=== PATIENT | female | born 1995 | race Caucasian/White ===

== ENCOUNTER 2024-01-12 16:17 | Emergency (ER) | payer SELFPAY ==
[2024-01-12 16:29] VITALS: BP 164/94; PULSE 65; RESP 16; TEMP 36.9; O2SAT 96; BMI 42.9
--- NOTE | 2024-01-12 17:15 | XRR_ITS ---
PROCEDURE INFORMATION: Exam: XR Left Shoulder Exam date and time: 01/12/2024 5:36 PM Age: 28 years old Clinical indication: Weakness; Shoulder; Left; Additional info: Shoulder pain no trauma TECHNIQUE: Imaging protocol: Radiologic exam of the left shoulder. Views: 2 or more views. COMPARISON: No relevant prior studies available. FINDINGS: Bones/joints: Normal. Soft tissues: Normal. XR/XR shoulder LT min 2V* [id number] IMPRESSION: No acute findings.
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
--- NOTE | 2024-01-12 18:01 | DCPLANNER ---
Message sent to Ortho for a follow up-
== END 2024-01-12 18:15 | disposition home or self-care (01) ==
PROVIDERS: Emergency Provider Physician Assistant
DX: M25.512 Pain in left shoulder (principal)
CPT/HCPCS: 73030; 99283

== ENCOUNTER → 2024-01-28 10:11 | Outpatient (BNVA) | payer SELFPAY | PROVIDERS: Referring Provider Physician Assistant; Visit Provider Student in an Organized Health Care Education/Training Program | DX: M25.512 Pain in left shoulder; M54.9 Dorsalgia, unspecified | CPT/HCPCS: 73030 ==

== ENCOUNTER 2024-04-24 17:44 | Emergency (ER) | payer SELFPAY ==
[2024-04-24 17:48] VITALS: BP 147/85; PULSE 112; RESP 17; TEMP 37.2; O2SAT 95; BMI 44.1
--- NOTE | 2024-04-24 18:48 | ED_ITS ---
HPI - Dental/Oral General: Chief complaint: Upper Respiratory Infection Stated complaint: rt face swollen Time Seen by Provider: 04/24/24 18:40 History of Present Illness: 28-year-old female comes in today with r ight facial swelling. Patient has some noticeable swelling of the face but not significant. Patient has very poor dentition. Patient been trying some fish amoxicillin with no relief. Patient reports no nausea vomiting or fever. Review of Systems General: Reports: 10 or more systems reviewed and unremarkable except in HPI and below PFSH ED PFSH: Social History Smoking and tobacco/nicotine status: current every day tobacco/nicotine user Alcohol intake: current Alcohol intake frequency: few times a month Substance/Drug Use: current Substance/Drug use frequency: daily Physical Exam Const: COMMON NORMALS: alert HENMT: COMMON NORMALS: normocephalic HEAD & SCALP: normocephalic FACE & SINUS: other (Mild facial swelling) TEETH & GINGIVA: Yes other (Very poor dentition) Neck/C-Spine: COMMON NORMALS: full ROM Resp: COMMON NORMALS: normal respiratory effort Cardio: COMMON NORMALS: regular rate RATE: regular rate Back/Pelvis: COMMON NORMALS: thoracic and lumbar spine normal to inspection Extremity: COMMON NORMALS: normal to inspection Neuro: SENSORIUM/ORIENTATION: Yes alert Skin: COMMON NORMALS: turgor normal GENERAL SKIN EXAM: turgor normal Course Vital Signs: Vital signs: Vital Signs Temperature 99 F 04/24/24 19:00 Pulse Rate 112 H 04/24/24 19:00 Respiratory Rate 17 04/24/24 19:00 Blood Pressure 147/85 04/24/24 19:00 Pulse Oximetry 95 04/24/24 19:00 Oxygen Delivery Me thod Room Air 04/24/24 17:48 MDM - Dental/Oral Medical Decision Making 28-year-old female comes in today with some complaints of right facial swelling. On exam patient has some mild swelling of the right face. Examination of the mouth notes very poor dentition with decay to the gumline. Patient does have some mild swelling of the gingiva in the right upper mouth. Patient reports pain and discomfort to her. Posterior pharynx is normal. Patient appears nontoxic. Patient appears in mild pain. Differential diagnosis dental abscess, dental pain, dental caries. Patient will be switched to clindamycin 300 mg 4 times a day for the next 7 days. Patient was strongly advised to follow-up with dentist. No radiology studies performed this visit Discharge Plan Discharge Patient Disposition: Home Clinical Impression: Dental abscess Condition: Stable Prescriptions: New clindamycin HCl 300 mg capsule 300 mg PO QID 7 Days Qty: 28 0RF No Action metformin 500 mg tablet 500 mg PO DAILY glimepiride 4 mg tablet 4 mg PO DAILY ferrous sulfate [FeroSul] 325 mg (65 mg iron) tablet 325 mg PO DAILY Discharge Orders: Discharge ED (Routine); Ordered 04/24/24 Ordered By: Oneal Garcia Discharge Diet: Usual diet Discharge Activity: Increase activity as tolerated Patient Instructions: Dental Abscess (ED) Activity Restrictions/Additional Instructions: Good oral care. Take antibiotics as directed. Follow-up with dentist for definitive care. Return to ER as needed for new concerns or worsening symptoms. Coding Level of Care Code ED Limousine Rental Clerk for Hiral Orozco
[2024-04-24] MEDS: clindamycin 150 mg Capsule 300 MG PO (18:56)
[2024-04-24 19:00] VITALS: BP 147/85; PULSE 112; RESP 17; TEMP 37.2; O2SAT 95
== END 2024-04-24 19:01 | disposition home or self-care (01) ==
PROVIDERS: Emergency Provider Nurse Practitioner Family
DX: K04.7 Periapical abscess without sinus (principal); Z79.84 Long term (current) use of oral hypoglycemic drugs; Z72.0 Tobacco use
CPT/HCPCS: 99283

== ENCOUNTER 2024-06-01 06:00 | Outpatient (CLI) | payer SELFPAY | END 2024-06-01 06:01 | disposition home or self-care (01) | PROVIDERS: PCP Clinical Nurse Specialist Adult Health; Visit Provider Clinical Nurse Specialist Adult Health | DX: I10 Essential (primary) hypertension (principal); E11.8 Type 2 diabetes mellitus with unspecified complications | CPT/HCPCS: 80053; 80061; 82728; 83036; 83550; 84443; 85025 ==

== ENCOUNTER 2024-08-13 14:21 | Emergency (ER) | payer SELFPAY ==
[2024-08-13 14:55] VITALS: BP 157/85; PULSE 101; RESP 16; TEMP 37.1; O2SAT 99; BMI 44.1
--- NOTE | 2024-08-13 15:09 | USR_ITS ---
PROCEDURE INFORMATION: Exam: US First Trimester, Transabdominal and US , Transvaginal Exam date and time: 08/13/2024 4:55 PM Age: 28 years old Clinical indication: complicated by abdominal or pelvic pain; Generalized abdominal pain; First trimester (<14 weeks 0 days); Gestational age or lmp: Gs measures 5w; ; Additional info: Pelvic pain, reports almost 8 wks, eval for iup, R/O ectopic. Eval viability LABS AND CLINICAL REPORTS: Gestational age (Established): 7 w 6 d Estimated due date (Established): 03/26/2025 TECHNIQUE: Imaging protocol: Real-time transabdominal obstetrical ultrasound of the maternal pelvis and a first trimester , less than 14 weeks 0 days, with image documentation. Transvaginal imaging was used for better evaluation of the fetus, adnexa, and/or cervix. COMPARISON: No relevant prior studies available. FINDINGS: GESTATION: Gestation: Tiny cystic focus within the endometrial canal may represent a gestational sac. Embryonic/ heart rate: Not detected. Extra-embryonic membranes/Placenta: Not clearly visualized. Amniotic/Chorionic fluid: Not clearly visualized. BIOMETRY: Mean sac diameter: 0.26 cm. EGA (MSD) is 5 w 0 d MATERNAL: Uterus: Unremarkable. Endometrial stripe measures 1.4 cm in thickness. Nabothian cysts are noted. Cervix: Cervical length measures 3.2 cm. Right ovary/adnexa: Right ovary measures 2.5 x 2.4 x 2.8 cm. Normal waveforms. Left ovary/adnexa: Left ovary measures 2.6 x 1.9 x 3.1 cm. Normal waveforms. Intraperitoneal space: No intraperitoneal free fluid. US/US OB <=14 wk fetus w transvag IMPRESSION: 1. Tiny cystic focus in the endometrial canal could represent a gestational sac. No pole detected, possibly too early for dates. Recommend correlation with beta HCG levels. A follow-up ultrasound could be considered in 1-2 weeks to re-evaluate. 2. No definite evidence of ectopic .
--- NOTE | 2024-08-13 16:32 | W.ED.ABDPA2 ---
HPI - Abdominal Pain General: Chief Complaint: Abdominal Pain Stated Complaint: 8weeks preg - cramping and leg pains Time Seen by Provider: 08/13/24 16:18 History of Present Illness: 28-year-old female presents emergency room at 8 weeks gestation complaining of some pelvic cramping denies dysuria urgency or frequency no vaginal discharge. No vomiting or diarrhea. No vaginal bleeding. She has not yet established for her care. Associated Symptoms: Denies chills, dysuria and fever(s) Related Data Home Medications Medication Instructions Recorded Confirmed ferrous sulfate 325 mg (65 mg 325 mg PO DAILY 01/28/24 07/25/24 iron) tablet (FeroSul) Previous Rx's Medication Instructions Recorded losartan 25 mg tablet 25 mg PO DAILY #30 tabs 06/01/24 glipizide 2.5 mg tablet 2.5 mg PO DAILY #30 tabs 06/02/24 metformin 500 mg tablet,extended 500 mg PO BID #60 tabs 06/02/24 release 24 hr naproxen 250 mg tablet 250 mg PO BID PRN pain #60 tabs 06/20/24 nitrofurantoin 100 mg PO BID 7 days #14 caps 08/13/24 monohydrate/macrocrystals 100 mg capsule (Macrobid) Allergies Allergy/AdvReac Type Severity Reaction Status Date / Time DETERGENT Allergy ALGY-Rash Uncoded 07/25/24 08:00 GREEN DYE Allergy ALGY-Rash Uncoded 07/25/24 08:00 Review of Systems Const: Denies: fever(s) or chills Card: Denies: chest pain Resp: Denies: dyspnea GI: Denies: abdominal pain : Denies: dysuria, urinary frequency or urinary urgency Musc: Denies: neck pain or back pain Skin/Breast: Denies: rash PFSH ED PFSH: Medical History Iron deficiency anemia Hyperlipidemia H/O psychiatric care Major depression Generalized anxiety disorder Heart murmur as a child Gastritis Morbid obesity due to excess calories ABIODUN (obstructive sleep apnea) never had a machine Nicotine dependence with current use smokes 1/2 PPD X 6 years Essential hypertension Type 2 diabetes mellitus with complication Surgical History No pertinent past surgical history Family History Other CAD (coronary artery disease) Diabetes Diabetes mellitus, type 2 Hyperlipidemia Hypertension Psychiatric illness Schizophrenia Stroke Denies family history of Hypothyroidism Breast cancer Cancer Social History Smoking and tobacco/nicotine status: current every day tobacco/nicotine user cigarettes [ Other cigarette details: 6 pack year history] Alcohol intake: current Alcohol intake frequency: few times a month Substance/Drug Use: current Substance/Drug use frequency: daily Other substance/drug use details: for anxiety Lives independently: Yes Household members: significant other Number of children: 0 Current occupational status: employed Pets and animals: Yes Pets & animals: cat(s) and dog(s) Do you think of yourself as: Bisexual Physical Exam Const: COMMON NORMALS: no acute distress GENERAL APPEARANCE: cooperative and comfortable ORIENTATION/CONSCIOUSNESS: Yes awake, Yes oriented to person, Yes oriented to place and Yes oriented to time HENMT: COMMON NORMALS: normocephalic, atraumatic and hearing grossly normal bilaterally HEAD & SCALP: normocephalic and atraumatic Resp: COMMON NORMALS: normal respiratory effort, No retractions, No use of accessory muscles and clear to auscultation bilaterally AUSCULTATION: clear to auscultation bilaterally Cardio: COMMON NORMALS: regular rate, regular rhythm and No murmurs present (Cardio) RATE: regular rate RHYTHM: regular rhythm GI: COMMON NORMALS: Soft to palpation and No hepatosplenomegaly present AUSCULTATION: Yes normoactive bowel sounds PALPATION: Yes Soft to palpation, No Tenderness to palpation present (GI), No Guarding due to palpation present (GI) and Yes No hepatosplenomegaly present Extremity: COMMON NORMALS: normal to inspection, capillary refill normal, no clubbing, cyanosis or edema, no calf tenderness and no pedal edema Neuro: SENSORIUM/ORIENTATION: Yes oriented to person, Yes oriented to place and Yes oriented to time Skin: COMMON NORMALS: no rashes or lesions noted GENERAL SKIN EXAM: no rashes or lesions noted Course Vital Signs: Vital signs: Vital Signs Temperature 98.7 F 08/13/24 14:55 Pulse Rate 101 H 08/13/24 14:55 Respiratory Rate 16 08/13/24 14:55 Blood Pressure 157/85 08/13/24 14:55 Pulse Oximetry 99 08/13/24 14:55 Oxygen Delivery Me thod Room Air 08/13/24 14:55 MDM - Abdominal Pain Medical Decision Making Beta-hCG low for 8 weeks gestation. Ultrasound shows intrauterine but is 5 weeks or last. Concerning for missed or threatened AB. She is not having any bleeding at this point. She has an incidental cystitis as well. That could also be the source of the cramping. Reviewed findings with the patient. She should contact Dr. Bryan's office first thing on Thursday to have a repeat beta-hCG drawn on Thursday. She was given a gram of Rocephin here and is to start the Macrobid tomorrow. Medical Records I reviewed the patient's medical records. Lab Data I reviewed the patient's lab results. Labs/Radiology: Laboratory Results HCG, Qual Positive (Negative) H 08/13/24 16:37 Ser , Semi-Qnt 692.40 mIU/mL 08/13/24 17:29 Urine Color Yellow (Yellow) 08/13/24 16:37 Urine Appearance Cloudy (CLEAR) A 08/13/24 16:37 Urine pH 5.5 (5-7) 08/13/24 16:37 Ur Specific [place] 1.022 (1.005-1.030) 08/13/24 16:37 Urine Protein Negative (Negative) 08/13/24 16:37 Urine Glucose (UA) Negative (Normal) 08/13/24 16:37 Urine Ketones Negative (Negative) 08/13/24 16:37 Urine Blood Negative (Negative) 08/13/24 16:37 Urine Nitrate Negative (Negative) 08/13/24 16:37 Urine Bilirubin Negative (Negative) 08/13/24 16:37 Urine Urobilinogen 0.2 mg/dL (Negative) 08/13/24 16:37 Ur Leukocyte Esterase 1+ (Negative) A 08/13/24 16:37 Urine RBC 0-2 /hpf (0-2) 08/13/24 16:37 Urine WBC 21-50 /hpf (0-5) H 08/13/24 16:37 Ur Squamous Epith Cells 11-20 /hpf (0-5) 08/13/24 16:37 Amorphous Sediment Not Reportable 08/13/24 16:37 Urine Bacteria 3+ /hpf (NONE) H 08/13/24 16:37 Hyaline Casts 0-4 /lpf H 08/13/24 16:37 All radiology interpretation(s) finalized by discharge Discharge Plan Discharge Patient Disposition: Home Clinical Impression: Miscarriage, threatened, early , Cystitis Condition: Stable Prescriptions: New nitrofurantoin monohyd/m-cryst [Macrobid] 100 mg capsule 100 mg PO BID 7 Days Qty: 14 0RF Rx Instructions: must administer with a meal/food No Action ferrous sulfate [FeroSul] 325 mg (65 mg iron) tablet 325 mg PO DAILY losartan 25 mg tablet 25 mg PO DAILY Qty: 30 0RF naproxen 250 mg tablet 250 mg PO BID PRN (Reason: pain) Qty: 60 0RF metformin 500 mg tablet extended release 24 hr 500 mg PO BID Qty: 60 0RF glipizide 2.5 mg tablet 2.5 mg PO DAILY Qty: 30 0RF Discharge Orders: Discharge ED (Routine); Ordered 08/13/24 Ordered By: Mendez Dove Referrals: Jamari Delacruz NP [Primary Care Provider] - Discharge Diet: Usual diet Discharge Activity: Resume usual activity Patient Instructions: Threatened Miscarriage (ED), Opioid Safety, Pain Management Activity Restrictions/Additional Instructions: Thank you for choosing [facility] for your healthcare needs today. It is very important that you follow up as instructed or that you return to the Emergency Department should you have concerns or if your condition changes or worsens in any way. You were seen in the emergency room with complaint of pelvic cramping. You were found to have a bladder infection you are given a dose of antibiotics in the emergency room recommend he start oral antibiotics tomorrow 1 pill twice a day for 7 days. Additionally we did do an ultrasound the is in utero but is lower than expected to be for 8 weeks. It is possible that you are earlier than the thought for in the course of the or it is possible that you may be having a miscarriage. You should have the beta-hCG rechecked in 3 days. Your primary care doctor or your OB can arrange for this. Coding Level of Care Code ED Concrete Crusher Loader Operator for Hiral Orozco
[2024-08-13 16:44] LABS: HCG Qualitative Urine. Positive (Negative)
[2024-08-13 16:45] LABS: Bilirubin Urine Negative (Negative); Blood Urine Negative (Negative); Glucose Urine UA Negative (Normal); Ketones Urine Negative (Negative); Leukocyte Esterase Urine 1+ (Negative); Nitrate Urine Negative (Negative); Protein Urine Negative (Negative); Specific Gravity, Urine 1.022 (1.005-1.030); Urine Appearance Cloudy (CLEAR); Urine Color Yellow (Yellow); Urobilinogen Urine 0.2 mg/dL (Negative); pH Urine 5.5 (5-7)
[2024-08-13 16:47] LABS: Add Urine Microscopic? YES; Bacteria Urine 3+ /hpf; Hyaline Casts Urine 0-4 /lpf; RBC Urine 0-2 /hpf (0-2); WBC Urine 21-50 /hpf (0-5)
[2024-08-13 16:49] LABS: Add Urine Culture? No
[2024-08-13] MEDS: cefTRIAXone 1,000 mg SDV 1000 MG IVP (18:10)
[2024-08-13 18:43] VITALS: BP 163/86; PULSE 97; O2SAT 98
== END 2024-08-13 18:43 | disposition home or self-care (01) ==
PROVIDERS: Emergency Medicine; Emergency Provider Family Medicine; PCP Clinical Nurse Specialist Adult Health
DX: O20.0 Threatened abortion (principal); Z3A.08 8 weeks gestation of pregnancy; O23.11 Infections of bladder in pregnancy, first trimester; O24.111 Pre-existing type 2 diabetes mellitus, in pregnancy, first trimester; O16.1 Unspecified maternal hypertension, first trimester; O99.331 Smoking (tobacco) complicating pregnancy, first trimester; F17.210 Nicotine dependence, cigarettes, uncomplicated
CPT/HCPCS: 36415; 76801; 76817; 81001; 81025; 84702; 96374; 99284; J0696

== ENCOUNTER 2024-08-16 08:39 | Emergency (ER) | payer SELFPAY ==
[2024-08-16 08:43] VITALS: BP 190/94; PULSE 99; RESP 16; TEMP 36.8; O2SAT 99
[2024-08-16 08:52] VITALS: BP 190/94; PULSE 126; RESP 16; O2SAT 99
[2024-08-16 09:06] LABS: Basophils # 0.1 10^3/uL (0.0-0.1); Basophils % 0.6 %; Eosinophils # 0.1 10^3/uL (0.0-0.8); Eosinophils % 1.2 %; Hematocrit 38.4 % (36-47); Lymphocytes # 2.7 10^3/uL (0.8-4.8); Lymphocytes % 29.7 %; Mean Corpuscular HGB Conc 31.3 g/dL (30-55); Mean Corpuscular Hemoglobin 25.1 pg (27-33); Mean Corpuscular Volume 80.2 fl (85-98); Monocytes # 0.6 10^3/uL (0.2-0.9); Monocytes % 6.6 %; Neutrophils % 61.7 %; Nucleated Red Blood Cells % 0 %; Platelet Count 299 10^3/cmm (157-399); Red Blood Count 4.79 10^6/uL (3.85-5.65); Red Cell Distribution Width 13.8 % (12.1-15.1); White Blood Count 9.24 10^3/uL (3.29-11.43)
[2024-08-16 09:07] VITALS: BP 133/68; PULSE 75; RESP 16; O2SAT 99
--- NOTE | 2024-08-16 09:23 | W.ED.RECABL ---
HPI - Recheck/Abnormal Lab/Rx General: Chief Complaint: Recheck/Abnormal Lab/Rx Stated Complaint: poss miscarriage Time Seen by Provider: 08/16/24 08:43 History of Present Illness: 28-year-old female was seen 3 days ago she is estimated she was 8 weeks gestation beta-hCG was 692 with intrauterine products of conception but no pole noted. Was too early for dating. They recommended follow-up beta-hCG's and ultrasounds. She returns today to the ER for repeat beta-hCG she has not had any cramping no vaginal discharge or bleeding. Cystic structure noted on the ultrasound was in the endometrial canal. Related Data Previous Rx's Medication Instructions Recorded losartan 25 mg tablet 25 mg PO DAILY #30 tabs 06/01/24 metformin 500 mg tablet,extended 500 mg PO BID #60 tabs 06/02/24 release 24 hr nitrofurantoin 100 mg PO BID 7 days #14 caps 08/13/24 monohydrate/macrocrystals 100 mg capsule (Macrobid) Allergies Allergy/AdvReac Type Severity Reaction Status Date / Time DETERGENT Allergy ALGY-Rash Uncoded 07/25/24 08:00 GREEN DYE Allergy ALGY-Rash Uncoded 07/25/24 08:00 Review of Systems Const: Denies: fever(s) or chills : Denies: dysuria, urinary frequency, urinary urgency or vaginal bleeding PFSH ED PFSH: Medical History Iron deficiency anemia Hyperlipidemia H/O psychiatric care Major depression Generalized anxiety disorder Heart murmur as a child Gastritis Morbid obesity due to excess calories ABIODUN (obstructive sleep apnea) never had a machine Nicotine dependence with current use smokes 1/2 PPD X 6 years Essential hypertension Type 2 diabetes mellitus with complication Surgical History No pertinent past surgical history Family History Other CAD (coronary artery disease) Diabetes Diabetes mellitus, type 2 Hyperlipidemia Hypertension Psychiatric illness Schizophrenia Stroke Denies family history of Hypothyroidism Breast cancer Cancer Social History Smoking and tobacco/nicotine status: current every day tobacco/nicotine user cigarettes [ Other cigarette details: 6 pack year history] Alcohol intake: current Alcohol intake frequency: few times a month Substance/Drug Use: current Substance/Drug use frequency: daily Other substance/drug use details: for anxiety Lives independently: Yes Household members: significant other Number of children: 0 Current occupational status: employed Pets and animals: Yes Pets & animals: cat(s) and dog(s) Do you think of yourself as: Bisexual Physical Exam Const: COMMON NORMALS: no acute distress GENERAL APPEARANCE: cooperative and comfortable ORIENTATION/CONSCIOUSNESS: Yes awake, Yes oriented to person, Yes oriented to place and Yes oriented to time HENMT: COMMON NORMALS: normocephalic, atraumatic and hearing grossly normal bilaterally HEAD & SCALP: normocephalic and atraumatic Resp: COMMON NORMALS: normal respiratory effort, No retractions, No use of accessory muscles and clear to auscultation bilaterally AUSCULTATION: clear to auscultation bilaterally Cardio: COMMON NORMALS: regular rate, regular rhythm and No murmurs present (Cardio) RATE: regular rate RHYTHM: regular rhythm Extremity: COMMON NORMALS: normal to inspection, capillary refill normal, no clubbing, cyanosis or edema, no calf tenderness and no pedal edema Neuro: SENSORIUM/ORIENTATION: Yes oriented to person, Yes oriented to place and Yes oriented to time Skin: COMMON NORMALS: no rashes or lesions noted GENERAL SKIN EXAM: no rashes or lesions noted Course Vital Signs: Vital signs: Vital Signs Temperature 98.3 F 08/16/24 08:43 Pulse Rate 76 08/16/24 09:54 Respiratory Rate 16 08/16/24 09:54 Blood Pressure 131/91 08/16/24 09:54 Pulse Oximetry 98 08/16/24 09:54 Oxygen Delivery Me thod Room Air 08/16/24 09:07 MDM - Recheck/Abnormal Lab/Rx Medical Decision Making Discharge patient home beta-hCG had slight increase from 692-769. Needed repeat beta-hCG in 3 days [facility] and repeat the beta-hCG and follow-up at that time. She has an appointment next week to see one of the providers there which she should keep that as well return if she has concerns pain or uncontrolled vaginal bleeding. Lab Data 08/16/24 08:59 08/16/24 08:59 Laboratory Results WBC 9.24 10^3/uL (3.29-11.43) 08/16/24 08:59 RBC 4.79 10^6/uL (3.85-5.65) 08/16/24 08:59 Hgb 12.00 g/dL (11.27-16.99) 08/16/24 08:59 Hct 38.4 % (36-47) 08/16/24 08:59 MCV 80.2 fl (85-98) L 08/16/24 08:59 MCH 25.1 pg (27-33) L 08/16/24 08:59 MCHC 31.3 g/dL (30-55) 08/16/24 08:59 RDW 13.8 % (12.1-15.1) 08/16/24 08:59 Plt Count 299 10^3/cmm (157-399) 08/16/24 08:59 MPV 10.0 fL (7.4-10.4) 08/16/24 08:59 Neut % (Auto) 61.7 % 08/16/24 08:59 Lymph % (Auto) 29.7 % 08/16/24 08:59 [place] % (Auto) 6.6 % 08/16/24 08:59 Eos % (Auto) 1.2 % 08/16/24 08:59 Baso % (Auto) 0.6 % 08/16/24 08:59 Neut # (Auto) 5.70 10^3/uL (1.8-7.7) 08/16/24 08:59 Lymph # (Auto) 2.7 10^3/uL (0.8-4.8) 08/16/24 08:59 [place] # (Auto) 0.6 10^3/uL (0.2-0.9) 08/16/24 08:59 Eos # (Auto) 0.1 10^3/uL (0.0-0.8) 08/16/24 08:59 Baso # (Auto) 0.1 10^3/uL (0.0-0.1) 08/16/24 08:59 Nucleated RBC % (auto) 0 % 08/16/24 08:59 Nucleated RBCs # 0.0 /100WBC 08/16/24 08:59 Sodium 135 mmol/L (136-145) L 08/16/24 08:59 Potassium 4.4 mmol/L (3.5-5.1) 08/16/24 08:59 Chloride 102 mmol/L (98-107) 08/16/24 08:59 Carbon Dioxide 21 mmol/L (22-29) L 08/16/24 08:59 Anion Gap 16.4 (5-19) 08/16/24 08:59 BUN 10 mg/dL (6-20) 08/16/24 08:59 Creatinine 0.4 mg/dL (0.5-0.9) L 08/16/24 08:59 GFR Calculation 191.5 mL/min (90-130) H 08/16/24 08:59 Glucose 240 mg/dL (65-115) H 08/16/24 08:59 Calculated Osmolality 287 mOsm/kg (285-295) 08/16/24 08:59 Calcium 8.5 mg/dL (8.5-10.5) 08/16/24 08:59 Total Bilirubin 0.2 mg/dL (0.15-1.2) 08/16/24 08:59 AST 12 U/L (0-32) 08/16/24 08:59 ALT 15 U/L (0-33) 08/16/24 08:59 Alkaline Phosphatase 101 U/L (35-105) 08/16/24 08:59 Total Protein 6.8 g/dL (6.6-8.7) 08/16/24 08:59 Albumin 4.2 g/dL (3.5-5.2) 08/16/24 08:59 Globulin 2.6 g/dL (1.3-4.6) 08/16/24 08:59 Ser , Semi-Qnt 769.80 mIU/mL 08/16/24 08:59 Rho(D) Type Rh positive 08/16/24 08:59 No radiology studies performed this visit Discharge Plan Discharge Patient Disposition: Home Clinical Impression: Miscarriage, threatened, early Condition: Stable Prescriptions: No Action losartan 25 mg tablet 25 mg PO DAILY Qty: 30 0RF metformin 500 mg tablet extended release 24 hr 500 mg PO BID Qty: 60 0RF nitrofurantoin monohyd/m-cryst [Macrobid] 100 mg capsule 100 mg PO BID 7 Days Qty: 14 0RF Rx Instructions: must administer with a meal/food Discharge Orders: Discharge ED (Routine); Ordered 08/16/24 Ordered By: Mendez Dove Referrals: Jamari Delacruz, FLATWORK PRESSER [Primary Care Provider] - Patient Instructions: Opioid Safety, Pain Management Activity Restrictions/Additional Instructions: Thank you for choosing [facility] for your healthcare needs today. It is very important that you follow up as instructed or that you return to the Emergency Department should you have concerns or if your condition changes or worsens in any way. You are seen today for follow-up for possible miscarriage. Your beta-hCG did go up very slightly however it was less than we would expected for early in the . We have made arrangements for you to have a another beta-hCG drawn in 3 days as an outpatient. The [facility] clinic will follow-up with the results regarding that test. You should keep your appointment next week at the [facility] clinic. Return to the ER if you have significant worsening of symptoms or developing severe pain or bleeding. Coding Level of Care Code ED Podiatrist Orthopedic for Hiral Orozco
[2024-08-16 09:40] LABS: Alanine Aminotransferase 15 U/L (0-33); Albumin Level 4.2 g/dL (3.5-5.2); Alkaline Phosphatase 101 U/L (35-105); Anion Gap 16.4 (5-19); Aspartate Amino Transferase 12 U/L (0-32); Blood Urea Nitrogen 10 mg/dL (6-20); Calcium 8.5 mg/dL (8.5-10.5); Carbon Dioxide 21 mmol/L (22-29); Chloride 102 mmol/L (98-107); Creatinine Clr Calc Pharmacy 237.2448; Globulin 2.6 g/dL (1.3-4.6); Glomerular Filtration Rate 191.5 mL/min (90-130); Glucose 240 mg/dL (65-115); Osmolality Calculated 287 mOsm/kg (285-295); Potassium 4.4 mmol/L (3.5-5.1); Sodium 135 mmol/L (136-145); Total Bilirubin 0.2 mg/dL (0.15-1.2); Total Protein 6.8 g/dL (6.6-8.7)
--- NOTE | 2024-08-16 09:52 | PC.NURSE ---
PT has been [facility] an appointment [facility] ThursdayAugust 19 @ 0900.
[2024-08-16 09:54] VITALS: BP 131/91; PULSE 76; RESP 16; O2SAT 98
== END 2024-08-16 09:56 | disposition home or self-care (01) ==
PROVIDERS: Emergency Provider Family Medicine; PCP Clinical Nurse Specialist Adult Health
DX: O20.0 Threatened abortion (principal); Z3A.08 8 weeks gestation of pregnancy; O24.111 Pre-existing type 2 diabetes mellitus, in pregnancy, first trimester; O26.891 Other specified pregnancy related conditions, first trimester; O99.331 Smoking (tobacco) complicating pregnancy, first trimester; F17.210 Nicotine dependence, cigarettes, uncomplicated; Z79.84 Long term (current) use of oral hypoglycemic drugs; E78.5 Hyperlipidemia, unspecified
CPT/HCPCS: 36415; 80053; 84702; 85025; 99283

== ENCOUNTER → 2024-08-19 08:29 | Outpatient (BNVA) | payer SELFPAY | PROVIDERS: PCP Clinical Nurse Specialist Adult Health; Visit Provider Nurse Practitioner Women's Health | DX: O20.0 Threatened abortion (principal) | CPT/HCPCS: 84702 ==

== ENCOUNTER → 2024-08-24 11:36 | Outpatient (BNVA) | payer SELFPAY | PROVIDERS: PCP Clinical Nurse Specialist Adult Health; Visit Provider Nurse Practitioner Women's Health | DX: Z36.87 Encounter for antenatal screening for uncertain dates (principal); O36.80X0 Pregnancy with inconclusive fetal viability, not applicable or unspecified; O36.8310 Maternal care for abnormalities of the fetal heart rate or rhythm, first trimester, not applicable or unspecified; Z3A.01 Less than 8 weeks gestation of pregnancy | CPT/HCPCS: 76817; 84702; 86850; 86900 ==

== ENCOUNTER 2024-08-28 17:32 | Emergency (ER) | payer SELFPAY ==
[2024-08-28 18:01] VITALS: BP 143/76; PULSE 85; TEMP 37.1; O2SAT 99; BMI 44.7
--- NOTE | 2024-08-28 18:51 | PC.NURSE ---
I attempted to do heart tones with the doppler on the patient and was unable to hear anything. Patient did get a little upset and started crying when I was unable to hear a heartbeat. I spoke with Dr. Chowdhury and he told me that it was fine that he did not expect me to hear heart tones.
[2024-08-28 19:40] VITALS: BP 166/98; PULSE 67; RESP 18; O2SAT 100
--- NOTE | 2024-08-28 22:04 | W.ED.PREGNAN ---
HPI - General: Chief complaint: Vaginal Bleeding Stated complaint: Pelvic Pain and bleeding 6 wks preg Time Seen by Provider: 08/28/24 18:07 History of Present Illness: This patient is a 28-year-old white female who presents to the ER complaining of pelvic cramping which started this morning. She then started having some vaginal spotting. Patient states she has a . She states she is 6 weeks 3 days. She states she had 2 ultrasounds during this the last 1 was done at 5 weeks 6 days. She states that they did hear a heartbeat at that time but it was 81. Patient states she has had several quantitative hCG levels drawn and they have been consistently in the 800 range. Related Data : 2 Previous Rx's Medication Instructions Recorded metformin 500 mg tablet,extended 500 mg PO BID #60 tabs 08/24/24 release 24 hr nifedipine 30 mg tablet,extended 30 mg PO DAILY #30 tabs 08/24/24 release 24 hr (Procardia XL) Allergies Allergy/AdvReac Type Severity Reaction Status Date / Time DETERGENT Allergy ALGY-Rash Uncoded 08/28/24 18:07 GREEN DYE Allergy ALGY-Rash Uncoded 08/28/24 18:07 Review of Systems General: Reports: 10 or more systems reviewed and unremarkable except in HPI and below : Reports: vaginal bleeding PFSH ED PFSH: Medical History Iron deficiency anemia Hyperlipidemia H/O psychiatric care Major depression Generalized anxiety disorder Heart murmur as a child Gastritis Morbid obesity due to excess calories ABIODUN (obstructive sleep apnea) never had a machine Nicotine dependence with current use smokes 1/2 PPD X 6 years Essential hypertension Type 2 diabetes mellitus with complication Surgical History No pertinent past surgical history Family History Father Diabetes Mother Diabetes Hypertension Grandmother Diabetes Heart disease Hypertension Stroke Grandfather Diabetes Denies family history of Colon cancer Ovarian cancer Prostate cancer Breast cancer Uterine cancer Thyroid disease Female Reproductive History: : 2 Physical Exam Const: COMMON NORMALS: no acute distress, patient oriented x3 and no limitations GENERAL APPEARANCE: cooperative and comfortable HENMT: COMMON NORMALS: normocephalic, atraumatic, Normal nasal mucous membranes and turbinates present, moist oral mucous membranes and oropharynx normal HEAD & SCALP: normal to inspection, normocephalic and atraumatic FACE & SINUS: normal facial exam NOSE: Normal nasal mucous membranes and turbinates present Eye: COMMON NORMALS: Equal, round and reactive pupils present, EOMs intact bilaterally and conjunctivae normal GENERAL EYE: appearance normal, both eyes and all related structures CONJUNCTIVA: Yes conjunctivae normal PUPIL: Yes Equal, round and reactive pupils present Neck/C-Spine: COMMON NORMALS: supple and no JVD Chest: COMMONS NORMALS: normal inspection of the chest Resp: COMMON NORMALS: normal respiratory effort and clear to auscultation bilaterally AUSCULTATION: clear to auscultation bilaterally Cardio: COMMON NORMALS: no JVD, regular rate, regular rhythm, No gallops present (Cardio), No murmurs present (Cardio) and No rub (Cardio) RATE: regular rate RHYTHM: regular rhythm GI: COMMON NORMALS: Normal to inspection, nondistended, normoactive bowel sounds present, Soft to palpation and non-tender AUSCULTATION: Yes normoactive bowel sounds PALPATION: Yes Soft to palpation : COMMON NORMALS: Yes no CVA tenderness BLADDER/KIDNEY EXAM: Yes no CVA tenderness Back/Pelvis: COMMON NORMALS: no CVA tenderness and thoracic and lumbar spine normal to inspection Extremity: COMMON NORMALS: normal to inspection Neuro: COMMON NORMALS: patient oriented x3 and CN's II-XII intact bilaterally Psych: COMMON NORMALS: mental status grossly normal, Normal thought process present and cooperative THOUGHT PROCESS: Normal thought process present Skin: COMMON NORMALS: no rashes or lesions noted, turgor normal and no jaundice GENERAL SKIN EXAM: no rashes or lesions noted and turgor normal Course Vital Signs: Vital signs: Vital Signs Temperature 98.8 F 08/28/24 18:01 Pulse Rate 67 08/28/24 19:40 Respiratory Rate 18 08/28/24 19:40 Blood Pressure 166/98 08/28/24 19:40 Pulse Oximetry 100 08/28/24 19:40 Oxygen Delivery Me thod Room Air 08/28/24 18:01 MDM - OB/Uterine Contractions Medical Decision Making Nursing staff did attempt to Doppler heart tones but did not hear heartbeat. Patient's quantitative hCG level today is 726. I did review her previous quant levels. On the she was 826, on the she was 826, on the she was 769 and on the fifth she was 692. I told her this is not consistent with viability. She is likely had a miscarriage or incomplete miscarriage. I recommended she follow-up with her reed man in the clinic to discuss options. She was discharged in stable condition. Lab Data Laboratory Results Ser , Semi-Qnt 726.50 mIU/mL 08/28/24 18:39 No radiology studies performed this visit Discharge Plan Discharge Patient Disposition: Home Clinical Impression: Miscarriage Condition: Stable Prescriptions: No Action nifedipine [Procardia XL] 30 mg tablet extended release 24hr 30 mg PO DAILY Qty: 30 0RF Rx Instructions: take one tab once daily metformin 500 mg tablet extended release 24 hr 500 mg PO BID Qty: 60 0RF Discharge Orders: Discharge ED (Routine); Ordered 08/28/24 Ordered By: Vinnie Chowdhury Referrals: Jamari Delacruz, AUTOMATIC EQUIPMENT TECHNICIAN [Primary Care Provider] - Patient Instructions: Miscarriage (ED) Activity Restrictions/Additional Instructions: Follow-up with your reed man for further recommendations. Stand Alone Forms: Work/School Release Coding Level of Care Code ED Policyholder Information Clerk for Hiral Orozco
== END 2024-08-28 19:50 | disposition home or self-care (01) ==
PROVIDERS: Emergency Provider Emergency Medicine; PCP Clinical Nurse Specialist Adult Health
DX: O03.9 Complete or unspecified spontaneous abortion without complication (principal); O10.011 Pre-existing essential hypertension complicating pregnancy, first trimester; O24.111 Pre-existing type 2 diabetes mellitus, in pregnancy, first trimester; O26.891 Other specified pregnancy related conditions, first trimester; E78.5 Hyperlipidemia, unspecified; Z3A.01 Less than 8 weeks gestation of pregnancy
CPT/HCPCS: 36415; 84702; 99283

== ENCOUNTER → 2025-01-02 14:09 | Outpatient (BNVA) | payer SELFPAY | PROVIDERS: PCP Clinical Nurse Specialist Adult Health; Visit Provider Emergency Medicine | DX: R39.9 Unspecified symptoms and signs involving the genitourinary system (principal) | CPT/HCPCS: 81000 ==

== ENCOUNTER 2025-05-12 08:08 | Emergency (ER) | payer SELFPAY ==
[2025-05-12 08:12] VITALS: BP 167/88; PULSE 93; RESP 16; TEMP 36.9; O2SAT 96; BMI 43.8
--- OUTSIDE RECORDS SUMMARY | 2025-05-12 08:12 | XMS_ITS | Clinical Summary ---
Author Organization [employer] Address [address] [facility] Attn: [place] [address] Care Team Providers Care Boat Ride Operator Name Role Phone Unavailable Primary Care Provider Unavailabl e Allergies Active Allergy Reactions Criticality Noted Date Comments Green Dye Rash Low 07/29/2023 Medications metFORMIN (GLUCOPHAGE) 500 mg tablet Take 500 mg by mouth 2 times daily with meals. Active glimepiride (AMARYL) 2 mg tablet Take 2 mg by mouth daily with breakfast. Active Active Problems Problem Noted Date Diagnosed Date Nasal congestion 09/07/2023 Viral syndrome 09/07/2023 Vaginal candidiasis 07/29/2023 Acute cystitis without hematuria 07/29/2023 Acute viral syndrome 06/28/2023 Type 2 diabetes mellitus wit hout complication, without long-term current use of insulin 06/28/2023 Immunizations Immunization Administration Dates Next Due (M-M-R II/PRIORIX)(12 MO UP) MEASLES, MUMPS AND RUBELLA VIRUS VACCINE, 0.5 ML IM/SUBCUT 01/18/1998 (VARIVAX)(12 MOS UP)VARICELL A VIRUS VACCINE (PF) 0.5 ML, SUB CUT 06/11/1998 Dt Dtp Dtap Vaccine 02/08/2001, 8,05/04/1997,1996,1996 HIB, Unspecified Formulation 01/18/1998, 05/04/1997,02/27/1997,1996 Hepatitis B Vaccine 05/04/1997,1996,1995 IPV/OPV 01/18/1998,02/27/1997,1996 Social History Tobacco Use Types Packs/Day Years Used Date Smoking Tobacco: Every Day Cigarettes Tobacco Cessation:Ready to Q uit: Not Asked; Counseling Given: Not Answered Alcohol Use Standard Drinks/Week Comments Not Currently 0 (1 standard drink = 0.6 oz pur e alcohol) Feeling Safe Answer Date Recorded Are you in a relationship wi th someone who hurts you emotionally and/or physically? No 11/05/2023 Comments No Sex and Gender Information Value Date Recorded Sex Assigned at Not on file Legal Sex Female 2:53 PM LAND TITLE EXAMINER Gender Identity Not on file Sexual Orientation Not on file Last Filed Vital Signs Vital Sign Reading Time Taken Comments Blood Pressure 135/74 11/05/2023 8:00 PM LAND TITLE EXAMINER Pulse 67 11/05/2023 8:00 PM LAND TITLE EXAMINER Temperature 36.8 C (98.3 F) 11/05/2023 6:03 PM LAND TITLE EXAMINER Respiratory Rate 29 11/05/2023 8:00 PM LAND TITLE EXAMINER Oxygen Saturation 96% 11/05/2023 8:00 PM LAND TITLE EXAMINER Inhaled Oxygen Concentration - - Weight 105.5 kg (232 lb 9.6 oz) 11/05/2023 6:03 PM LAND TITLE EXAMINER Height 154.9 cm (5' 1 ) 11/05/2023 6:03 PM LAND TITLE EXAMINER Body Mass Index 43.95 11/05/2023 6:03 PM LAND TITLE EXAMINER Plan of Treatment Health Maintenance Due Date Last Done Comments DTAP/TDAP/TD VACCINES (6 - Tdap) 2007 02/08/2001, 01/18/1998, 05/04/1997, Additional history exists DIABETES ANNUAL FOOT EXAM 2014 DIABETES ANNUAL RETINAL EXAM 2014 DIABETES HBA1C Q 6 MONTHS 2014 DIABETES MICROALBUMIN ANNUAL SCREEN 2014 LDL CHOLESTEROL ANNUAL 2014 CERVICAL CANCER SCREENING 2017 HPV/Cotest (21-29) 2017 PAP SMEAR 2017 INFLUENZA VACCINE (#1) 2025 HEPATITIS B VACCINES Completed 05/04/1997, 1996, 1996 HPV VACCINES Aged Out No longer eligi ble based on patient's age to complete this topic Insurance [address] [place] [address] CHOICE [id number] [place] [id number]
--- OUTSIDE RECORDS SUMMARY | 2025-05-12 08:12 | XMS_ITS | Data Portability ---
Author Organization [facility], L[facility]CSharon, [facility] Address [address] [facility] [address] [place] [address] Assessment No assessment recorded. Plan of Treatment Reminders Order Date Submit Date Provider Last Modified By Organization Details Last Modified Time Details Appointments None recorded. Lab None recorded. Referral None recorded. Procedures None recorded. Surgeries None recorded. Imaging None recorded. Medication Orders prednisone 20 mg tablet 2023 024 [facility], [address], [place], [address], 4 11:35:52 Patient TargetsNo targets recorded. Patient InstructionsNo instructions recorded. Reason for Referral None Reported. Medical Equipment None Reported. Allergies No known drug allergies Medications Name Sig Start Date Stop Date Status Note LastModified by Organization Details LastModified Time prednisone 20 mg tablet Take 3 tablets every day by oral route for 3 days. 024 active Not Available Not Available Not Avai lable iron active Not Available Not Availa ble Not Available Vitals Date Recorded Body height Body mass index (BMI) Body weight Body temperature Respiratory rate Oxygen saturation Oxygen saturation in Arterial blood by Pulse oximetry Heart rate Systolic And Diastolic Provider Name and Address Organization Details Last Updated DateTime 4 154.94 cm 43.8 kg/m2 242499. 43 g 97.1 [degF] 20 /min 98 % 98 % 95 /min 120/60 mm[Hg] Roopa [facility], L.LSharonCSharon 4 11:25:52 Social History None recorded. Functional Status Question Answer Note LastModified by Organization D etails LastModified Time Do you or have you ever used any other forms of tobacco or nicotine? Yes [email or web address] Information not available 03/23/2024 Mental Status None recorded. Family History Nothing Reported. Medical History No medical history recorded. Gynecological HistoryNo gynecological history recorded. Obstetrics History GPAL:G 0 P 0 0 0 0 Past Encounters Encounter ID Performer Location Encounter Start Date Encounter Closed Date Diagnosis/Indication Diagnosis SNOMED-CT Code Diagnosis ICD10 Code Diagnosis Note [id number] TENISHA ZHANG [facility] ([facility]) [address] [place] [address] 03/23/2024 11:05:02 03/23/2024 13:11:57 Migraine 96958527 G43.909 Discussed to taken 25mg Benadryl and 400mg ibuprofen when at home today along with starting the prednisone as prescribed . IM injections held today since pt is self pay.Push oral fluids including some caffeine. Rest in a cool dark room.Nurte c sample also provided to patient for her to try if symptoms persist tomorrow.I f you develop fever, neck, or worsening s/s then f/u in ER Health Concerns Section Related Observation LastModified by Organization Detai ls LastModified Time None Recorded Concern Status LastModified by Organization Details LastModified Time None Recorded Advance Directives Directive None Recorded Payers Insurance Date Sequence Insurance Name Policy Number Policy Perez Covered Member ID Perez Member ID Guarantor Name 03/23/2024 1 *SELF PAY* Sa sofia Reyes Notes Date Note Type Note Provider Name and Address Organization Details Recorded Time 03/23/2024 text/html HeadacheReported bypatient.Location:fac ial; bilateral; including neck; occipital; temporal; sinus; band around head Quality:not the worst headache ever; similar to previous headaches;tightness;pa in;tension;dull Severity:moderate; pain level 9/10 Duration:has noted for 1 weeks Onset/Timing:gradual; still present; occur daily Aggravating factors:loud noise; visual stimuli or light Alleviating factors:OTC medication; laying in a dark room; sleep; rest Associated Symptoms:no nausea; no vomiting; no fever; no slurred speech; no dizziness;blind spots;double vision; Light sensitive Walk In-tylenol or ibuprofen taken for symptoms. Pt states this is a typical migraine for her. She called into work today and is requesting a note. No recent trauma or illness.PCP-None HERSON MCDOWELL, TENISHA [address] [place] [address], [phone], [facility] - [facility] [place] 03/23/2024 16:38:28 OBGyn Episode No OBEpisode recorded.
--- NOTE | 2025-05-12 08:33 | ED_ITS ---
HPI - Dental/Oral General: Chief complaint: Dental/Oral Stated complaint: facial swelling Time Seen by Provider: 05/12/25 08:12 History of Present Illness: 29-year-old female who presents to the e mergency room complaining of pain in the frontal incisors on the maxilla. She has extremely poor dentition she is planning to go to the dentist but has not been able to to see one yet. Is increasing facial pain and swelling. Associated symptoms: Denies fever(s) Related Data Previous Rx's ?Medication ?Instructions ?Recorded metformin 500 mg tablet,extended 500 mg PO BID #60 tab s 08/24/24 release 24 hr nifedipine 30 mg tablet,extended 30 mg PO DAILY #30 ta bs 08/24/24 release 24 hr (Procardia XL) ciprofloxacin HCl 500 mg tablet 500 mg PO BID 5 days # 10 tabs 01/02/25 amoxicillin 875 mg-potassium 1 tab PO BID #20 tabs 03/03 clavulanate 125 mg tablet Allergies Allergy/AdvReac Type Severity Reaction Status Date / Time D and C green no.5 Allergy ALGY-Rash Verified 04/25/25 09:28 D and C green no.6 Allergy ALGY-Rash Verified 04/25/25 09:28 FD and C green no.3 Allergy ALGY-Rash Verified 04/25/25 09:28 FD and C green no.32 Allergy ALGY-Rash Verified 04/25/25 09:28 FD and C green no.5 Allergy ALGY-Rash Verified 04/25/25 09:28 FD and C green no.6 Allergy ALGY-Rash Verified 04/25/25 09:28 Review of Systems Const: Denies: fever(s) or chills Card: Denies: chest pain Resp: Denies: dyspnea GI: Denies: abdominal pain : Denies: dysuria, urinary frequency or urinary urgency Musc: Denies: neck pain or back pain Skin/Breast: Denies: rash PFSH ED PFSH: Medical History Iron deficiency anemia Hyperlipidemia H/O psychiatric care Major depression Generalized anxiety disorder Heart murmur as a child Gastritis Morbid obesity due to excess calories ABIODUN (obstructive sleep apnea) never had a machine Nicotine dependence with current use smokes 1/2 PPD X 6 years Essential hypertension Type 2 diabetes mellitus with complication Surgical History No pertinent past surgical history Family History Father Diabetes Mother Diabetes Hypertension Grandmother Diabetes Heart disease Hypertension Stroke Grandfather Diabetes Denies family history of Colon cancer Ovarian cancer Prostate cancer Breast cancer Uterine cancer Thyroid disease Social History Smoking and tobacco/nicotine status: current every day tobacco/nicotine user Physical Exam Const: COMMON NORMALS: no acute distress GENERAL APPEARANCE: cooperative and comfortable ORIENTATION/CONSCIOUSNESS: Yes awake, Yes oriented to person, Yes oriented to place and Yes oriented to time HENMT: COMMON NORMALS: normocephalic, atraumatic and hearing grossly normal bilaterally HEAD & SCALP: normocephalic and atraumatic OTHER: Significant erosion of teeth particular frontal incisors totally ago I. Some mild swelling of the gingiva anteriorly in the maxilla but no chest no drainage Resp: COMMON NORMALS: normal respiratory effort, No retractions, No use of accessory muscles and clear to auscultation bilaterally AUSCULTATION: clear to auscultation bilaterally Cardio: COMMON NORMALS: regular rate, regular rhythm and No murmurs present (Cardio) RATE: regular rate RHYTHM: regular rhythm Extremity: COMMON NORMALS: normal to inspection, capillary refill normal, no clubbing, cyanosis or edema, no calf tenderness and no pedal edema Neuro: SENSORIUM/ORIENTATION: Yes oriented to person, Yes oriented to place and Yes oriented to time Skin: COMMON NORMALS: no rashes or lesions noted GENERAL SKIN EXAM: no rashes or lesions noted Course Vital Signs: Vital signs: Vital Signs Temperature 98.4 F 05/12/25 08:12 Pulse Rate 67 05/12/25 08:53 Respiratory Rate 16 05/12/25 08:12 Blood Pressure 156/80 05/12/25 08:53 Pulse Oximetry 97 05/12/25 08:53 Oxygen Delivery Me thod Room Air 05/12/25 08:12 MDM - Dental/Oral Medical Decision Making Treat for dental caries and infection with Augmentin. Encourage patient to follow-up with dentist for definitive care as soon as she is able No radiology studies performed this visit Discharge Plan Discharge Patient Disposition: Home Clinical Impression: Dental infection Condition: Stable Prescriptions: New amoxicillin-pot clavulanate 875-125 mg tablet 1 tab PO BID Qty: 20 0RF No Action nifedipine [Procardia XL] 30 mg tablet extended release 24hr 30 mg PO DAILY Qty: 30 0RF Rx Instructions: take one tab once daily metformin 500 mg tablet extended release 24 hr 500 mg PO BID Qty: 60 0RF ciprofloxacin HCl 500 mg tablet 500 mg PO BID 5 Days Qty: 10 0RF Discharge Orders: Discharge ED (Routine); Ordered 05/12/25 Ordered By: Mendez Dove Discharge Diet: Soft Mechanical Discharge Activity: Resume usual activity Patient Instructions: Dental Abscess (ED), Opioid Safety, Pain Management, Patient Portal & Erik Instructions Activity Restrictions/Additional Instructions: Thank you for choosing [facility] for your healthcare needs today. It is very important that you follow up as instructed or that you return to the Emergency Department should you have concerns or if your condition changes or worsens in any way. You were seen today for dental infection in your frontal teeth. You are started on oral antibiotics very important that you follow-up with a dentist for definitive care of the infection. Stand Alone Forms: Work/School Release Print Language: Setswana Coding Level of Care Code ED Dispatch Specialist for Hiral Orozco
[2025-05-12 08:53] VITALS: BP 156/80; PULSE 67; O2SAT 97
== END 2025-05-12 08:54 | disposition home or self-care (01) ==
PROVIDERS: Emergency Provider Family Medicine
DX: K04.7 Periapical abscess without sinus (principal); Z72.0 Tobacco use
CPT/HCPCS: 99283

== ENCOUNTER → 2025-08-08 10:44 | Outpatient (BNVA) | payer SELFPAY | PROVIDERS: Visit Provider Emergency Medicine | DX: R35.0 Frequency of micturition (principal); N39.0 Urinary tract infection, site not specified | CPT/HCPCS: 81000; 87086 ==

== ENCOUNTER → 2025-08-18 15:23 | Outpatient (BNVA) | payer SELFPAY | PROVIDERS: Visit Provider Emergency Medicine | DX: R73.9 Hyperglycemia, unspecified (principal) | CPT/HCPCS: 82962 ==

== ENCOUNTER → 2025-08-23 14:22 | Outpatient (BNVA) | payer SELFPAY | DX: N92.1 Excessive and frequent menstruation with irregular cycle (principal); E11.8 Type 2 diabetes mellitus with unspecified complications; E78.2 Mixed hyperlipidemia | CPT/HCPCS: 80053; 80061; 82533; 83001; 83036; 83498; 84146; 84403; 84443; 85025 ==

== ENCOUNTER 2025-09-15 11:59 | Emergency (ER) | payer SELFPAY ==
--- OUTSIDE RECORDS SUMMARY | 2025-09-15 12:05 | XMS_ITS | Clinical Summary ---
Author Organization [facility] Address [address] Attn: [place] [address] Care Team Providers Care Lan Analyst Name Role Phone Unavailable Primary Care Provider [...] on file Legal Sex Female 2:53 PM CASING [employer]ER Gender Identity Not on file Sexual Orientation Not on file Last Filed Vital Signs Vital Sign Reading Time Taken Comments Blood Pressure 135/74 11/05/2023 8:00 PM CASING GRADER Pulse 67 11/05/2023 8:00 PM CASING GRADER Temperature 36.8 C (98.3 F) 11/05/2023 6:03 PM CASING GRADER Respiratory Rate 29 11/05/2023 8:00 PM CASING GRADER Oxygen Saturation 96% 11/05/2023 8: 00 PM CASING GRADER Inhaled Oxygen Concentration - - Weight 105.5 kg (232 lb 9.6 oz) 11/05/2023 6:03 PM CASING GRADER Height 154.9 cm (5' 1 ) 11/05/2023 6:03 PM CASING GRADER Body Mass Index 43.95 11/05/2023 6:03 PM CASING GRADER Plan of Treatment Health Maintenance Due Date Last Done Comments DTAP/TDAP/TD VACCINES (6 - Tdap) 2007 02/08/2001, 01/18/1998, 05/04/1997, Additional history exists DIABETES ANNUAL FOOT EXAM 2014 DIABETES ANNUAL RETINAL EXAM 2014 DIABETES HBA1C Q 6 MONTHS 2014 DIABETES MICROALBUMIN ANNUAL SCREEN 2014 LDL CHOLESTEROL ANNUAL 2014 CERVICAL CANCER SCREENING 2017 HPV/Cotest (21-29) 2017 PAP SMEAR 2017 HPV VACCINES (1 - 3-dose SCD M series) 2023 INFLUENZA VACCINE (#1) 2025 HEPATITIS B VACCINES Completed 05/04/1997, 1996, [address] [place] [address] [place] [address] CHOICE [id number] [place] [id number]
[2025-09-15 12:07] VITALS: BP 154/95; PULSE 103; RESP 16; TEMP 37.1; O2SAT 99; BMI 28.3
--- NOTE | 2025-09-15 12:12 | CT_ITS ---
WS: [id number] CT ABDOMEN PELVIS TECHNIQUE: Contrast-enhanced CT of the abdomen and pelvis with coronal and sagittal reformatted images. CLINICAL INFORMATION: fever, abd pain, heavy period, vomiting COMPARISON: 2010 DLP: 1082.[address] scans at [facility] use at least one of these dose optimization techniques: automated exposure control; mA and/or kV adjustment per patient size (includes targeted exams where dose is matched to clinical indication); or iterative reconstruction. FINDINGS: Hepatomegaly. Normal spleen. Normal gallbladder. Normal pancreas. Adrenal glands are normal. No hydronephrosis. Normal renal parenchymal enhancement. Small esophageal hiatal hernia. Lung bases are well aerated. Normal caliber abdominal aorta. Tiny fat-containing umbilical hernia. Enlarged RIGHT inguinal lymph node measuring 2.5 x 1.8 cm. No LEFT inguinal lymphadenopathy. Normal colon. No evidence of small or large bowel obstruction. Normal appendix. No free fluid in the abdomen or pelvis. Anteverted uterus. CT/CT abdomen pelvis w con* [id number] IMPRESSION: 1. No hydronephrosis in either kidney. Normal renal parenchymal enhancement. 2. Normal appendix. 3. No free fluid in the cul-de-sac. 4. Enlarged RIGHT inguinal lymph node with replacement of normal fatty hilum m easuring 2.5 x 1.8 cm. This is indeterminant and recommend clinical correlation . This could be followed up with ultrasound as an outpatient and if persistent consider ultrasound guided biopsy. 5. Small esophageal hiatal hernia. 6. Hepatomegaly. 7. No other acute findings.
[2025-09-15] MEDS: ondansetron 2 mg/ML SDV 2 mL 4 MG IVP (12:31)
[2025-09-15 12:32] VITALS: RESP 16
[2025-09-15 12:32] LABS: Hematocrit 37.9 % (36-47); Hemoglobin 12.20 g/dL (11.27-16.99); Mean Corpuscular HGB Conc 32.2 g/dL (30-55); Mean Corpuscular Hemoglobin 25.7 pg (27-33); Mean Corpuscular Volume 80.0 fl (85-98); Nucleated Red Blood Cells % 0 %; Platelet Count 348 10^3/cmm (157-399); Red Blood Count 4.74 10^6/uL (3.85-5.65); White Blood Count 9.75 10^3/uL (3.29-11.43)
[2025-09-15] MEDS: morphine 4 mg/mL SDV 1 mL IVP (12:32)
--- NOTE | 2025-09-15 12:39 | W.ED.ABDPA2 ---
HPI - Abdominal Pain General: Chief Complaint: Abdominal Pain Stated Complaint: Fever N/V Heavy bleeding clots Time Seen by Provider: 09/15/25 12:02 History of Present Illness: 29-year-old female presenting to the emergency department with worsening lower abdominal pain, heavy vaginal bleeding, nausea with vomiting, mild diarrhea, and low-grade temperature. Patient reports that she has a history of irregular periods and has had such since she had a miscarriage a year ago, she reports that she is almost 2 to 3 months late on her period but started having vaginal bleeding consistent with a menstrual cycle 3 to 4 days ago, since then she has had increasing pelvic pain and mid abdominal pain, associated with some scant watery diarrhea at the beginning of her period which has resolved, now is experiencing nausea and vomiting, 2 episodes of vomiting nonbloody yesterday no vomiting today but persistent nausea, today associated with worsening of her pain and a low-grade temperature elevation to 99 range, no medications prior to arrival, no urinary symptoms, no vaginal discharge, also reports mild nasal congestion times several days without cough or shortness of breath. Related Data Previous Rx's ?Medication ?Instructions ?Recorded acarbose 25 mg tablet 25 mg PO TID #90 tabs 08/24/25 metformin 1,000 mg tablet 1,000 mg PO BID #60 tabs 08/24/25 amoxicillin 875 mg-potassium 1 tab PO BID 10 days #20 tabs 08/25/25 clavulanate 125 mg tablet Cassandra 3 Freestyle #1 ea 09/01/25 Allergies Allergy/AdvReac Type Severity Reaction Status Date / Time D and C green no.5 Allergy ALGY-Rash Verified 08/25/25 12:38 D and C green no.6 Allergy ALGY-Rash Verified 08/25/25 12:38 FD and C green no.3 Allergy ALGY-Rash Verified 08/25/25 12:38 FD and C green no.32 Allergy ALGY-Rash Verified 08/25/25 12:38 FD and C green no.5 Allergy ALGY-Rash Verified 08/25/25 12:38 FD and C green no.6 Allergy ALGY-Rash Verified 08/25/25 12:38 glipizide AdvReac Severe hypoglycemi Verified 08/25/25 12:38 a [facility] ED [facility]: Medical History Hx of one miscarriage Iron deficiency anemia Hyperlipidemia H/O psychiatric care Major depression Generalized anxiety disorder Heart murmur as a child Gastritis Morbid obesity due to excess calories ABIODUN (obstructive sleep apnea) never had a machine Nicotine dependence with current use smokes 1/2 PPD X 6 years Essential hypertension Type 2 diabetes mellitus with complication 2018 Surgical History No pertinent past surgical history Family History Mother Diabetes Hypertension Grandmother Diabetes Heart disease Hypertension Stroke Grandfather Diabetes Denies family history of Colon cancer Ovarian cancer Prostate cancer Breast cancer Uterine cancer Thyroid disease Social History Smoking and tobacco/nicotine status: current every day tobacco/nicotine user Alcohol intake: never Substance/Drug Use: current Substance/Drug use frequency: daily Physical Exam Narrative: EXAM NARRATIVE: Gen: A&Ox4, no acute distress, nontoxic appearing HEENT: Normocephalic, atraumatic, no scleral icterus, external ears normal, moist mucous membranes Neck: Supple, full range of motion, no observable masses Lungs: No Respiratory distress, Lungs clear to auscultation bilaterally no rales, rhonchi, wheezing CV: Regular rate and rhythm, no murmur, no pitting edema to lower extremities bilaterally Abdomen: Soft, nondistended, tender to palpation to the right lower quadrant, periumbilical region, suprapubic region, negative Herman sign MSK: No joint swelling, FROM all 4 extremities Skin: No rashes, petechiae, lesions. Normal color per patient. Neuro: Alert and oriented, no slurred speech, sensation and strength grossly intact all 4 extremities Psych: Appropriate for situation. Course Reevaluation(s): Reevaluation #1: Patient reassessed, symptoms improved, feels sleepy from the medication. Discussed results with patient to include the inguinal lymph node enlargement that requires PCP follow-up to ensure resolution or else may require biopsy, discussed the hiatal hernia, discussed no other emergent findings found on workup, stable for discharge with supportive care for pain, return precautions, PCP follow-up Time: 14:59 Vital Signs: Vital signs: Vital Signs Temperature 98.7 F 09/15/25 12:07 Pulse Rate 65 09/15/25 13:47 Respiratory Rate 16 09/15/25 12:32 Blood Pressure 129/56 09/15/25 13:47 Pulse Oximetry 97 09/15/25 13:47 Oxygen Delivery Me thod Room Air 09/15/25 13:47 MDM - Abdominal Pain Medical Decision Making 29-year-old female history of irregular menses after miscarriage last year, presenting to emergency department with 4-day history of vaginal bleeding consistent with menstrual cycle although heavier than normal for her, worsening abdominal/pelvic pain, resolved diarrhea, low-grade temperature elevation in the 99 range, persistent nausea with vomiting yesterday, in the ER today patient afebrile with mild tachycardia but nontoxic-appearing, she does have abdominal tenderness to palpation, plan for imaging, labs, urinalysis, pain management, fluid resuscitation, reassess for disposition to assess for any evidence of intra-abdominal surgical or infectious abdominal pathology. Lab Data Labs with no leukocytosis, no anemia, no ALVAREZ, normal electrolytes, hematuria in the urine without evidence of UTI, normal LFTs, 09/15/25 12:23 09/15/25 12:23 Labs/Radiology: Radiology Impressions Abdomen/Pelvis CT 09/15/25 12:12 IMPRESSION: 1. No hydronephrosis in either kidney. Normal renal parenchymal enhancement. 2. Normal appendix. 3. No free fluid in the cul-de-sac. 4. Enlarged RIGHT inguinal lymph node with replacement of normal fatty hilum measuring 2.5 x 1.8 cm. This is indeterminant and recommend clinical correlation. This could be followed up with ultrasound as an outpatient and if persistent consider ultrasound guided biopsy. 5. Small esophageal hiatal hernia. 6. Hepatomegaly. 7. No other acute findings. Laboratory Results WBC 9.75 10^3/uL (3.29-11.43) 09/15/25 12:23 RBC 4.74 10^6/uL (3.85-5.65) 09/15/25 12:23 Hgb 12.20 g/dL (11.27-16.99) 09/15/25 12:23 Hct 37.9 % (36-47) 09/15/25 12:23 MCV 80.0 fl (85-98) L 09/15/25 12:23 MCH 25.7 pg (27-33) L 09/15/25 12:23 MCHC 32.2 g/dL (30-55) 09/15/25 12:23 RDW 13.2 % (12.1-15.1) 09/15/25 12:23 Plt Count 348 10^3/cmm (157-399) 09/15/25 12:23 MPV 9.8 fL (7.4-10.4) 09/15/25 12:23 Neut % (Auto) 61.6 % 09/15/25 12:23 Lymph % (Auto) 31.3 % 09/15/25 12:23 [place] % (Auto) 5.0 % 09/15/25 12:23 Eos % (Auto) 1.1 % 09/15/25 12:23 Baso % (Auto) 0.7 % 09/15/25 12:23 Neut # (Auto) 6.00 10^3/uL (1.8-7.7) 09/15/25 12:23 Lymph # (Auto) 3.1 10^3/uL (0.8-4.8) 09/15/25 12:23 [place] # (Auto) 0.5 10^3/uL (0.2-0.9) 09/15/25 12:23 Eos # (Auto) 0.1 10^3/uL (0.0-0.8) 09/15/25 12:23 Baso # (Auto) 0.1 10^3/uL (0.0-0.1) 09/15/25 12:23 Nucleated RBC % (auto) 0 % 09/15/25 12:23 Nucleated RBCs # 0.0 /100WBC 09/15/25 12:23 Sodium 138 mmol/L (136-145) 09/15/25 12:23 Potassium 3.7 mmol/L (3.5-5.1) 09/15/25 12:23 Chloride 101 mmol/L (98-107) 09/15/25 12:23 Carbon Dioxide 22 mmol/L (22-29) 09/15/25 12:23 Anion Gap 18.7 (5-19) 09/15/25 12:23 BUN 7 mg/dL (6-20) 09/15/25 12:23 Creatinine 0.4 mg/dL (0.5-0.9) L 09/15/25 12:23 GFR Calculation 190.1 mL/min (90-130) H 09/15/25 12:23 Glucose 108 mg/dL (65-115) 09/15/25 12:23 POC Glucose 115 mg/dL (70-110) H 09/15/25 12:21 Calculated Osmolality 285 mOsm/kg (285-295) 09/15/25 12:23 Calcium 9.1 mg/dL (8.5-10.5) 09/15/25 12:23 Total Bilirubin 0.2 mg/dL (0.15-1.2) 09/15/25 12:23 AST 12 U/L (0-32) 09/15/25 12:23 ALT 16 U/L (0-33) 09/15/25 12:23 Alkaline Phosphatase 118 U/L (35-105) H 09/15/25 12:23 Total Protein 7.3 g/dL (6.6-8.7) 09/15/25 12:23 Albumin 4.4 g/dL (3.5-5.2) 09/15/25 12:23 Globulin 2.9 g/dL (1.3-4.6) 09/15/25 12:23 Lipase 15 U/L (13-60) 09/15/25 12:23 HCG, Qual Negative (Negative) 09/15/25 12:34 Urine Color [place] (Yellow) A 09/15/25 12:34 Urine Appearance Cloudy (CLEAR) A 09/15/25 12:34 Urine pH 6.0 (5-7) 09/15/25 12:34 Ur Specific [place] 1.021 (1.005-1.030) 09/15/25 12:34 Urine Protein 1+ (Negative) A 09/15/25 12:34 Urine Glucose (UA) Negative (Normal) 09/15/25 12:34 Urine Ketones Trace (Negative) 09/15/25 12:34 Urine Blood 3+ (Negative) A 09/15/25 12:34 Urine Nitrate Negative (Negative) 09/15/25 12:34 Urine Bilirubin Negative (Negative) 09/15/25 12:34 Urine Urobilinogen 1.0 mg/dL (Negative) 09/15/25 12:34 Ur Leukocyte Esterase Trace (Negative) A 09/15/25 12:34 Urine RBC >100 /hpf (0-2) H 09/15/25 12:34 Urine WBC 0-5 /hpf (0-5) 09/15/25 12:34 Ur Squamous Epith Cells 0-5 /hpf (0-5) 09/15/25 12:34 Amorphous Sediment Not Reportable 09/15/25 12:34 Urine Bacteria Trace /hpf (NONE) 09/15/25 12:34 Hyaline Casts 0.40 /lpf 09/15/25 12:34 All radiology interpretation(s) finalized by discharge ED provider radiology interpretation(s): CT abdomen pelvis showing right inguinal lymph node enlargement, no emergent acute pathology Discharge Plan Discharge Patient Disposition: Home Clinical Impression: Abdominal pain, Inguinal lymphadenitis Condition: Stable Prescriptions: No Action amoxicillin-pot clavulanate 875-125 mg tablet 1 tab PO BID 10 Days Qty: 20 0RF metformin 1,000 mg tablet 1,000 mg PO BID Qty: 60 2RF acarbose 25 mg tablet 25 mg PO TID Qty: 90 2RF Rx Instructions: [facility] please (DME) Cassandra 3 Freestyle See Rx Instructions .Route .MEDSUPPLY Qty: 1 0RF Rx Instructions: As directed Discharge Orders: Discharge ED (Routine); Ordered 09/15/25 Ordered By: Yair Colbert Referrals: Jannie Chandra NP [Primary Care Provider, Family Practice] Patient Instructions: Abdominal Pain (ED), Patient Portal & Erik Instructions, Lymphadenopathy (ED) Print Language: Icelandic Coding Level of Care Code ED Merchandise Presentation Manager for Hiral Orozco
[2025-09-15 12:46] LABS: Glucose Urine UA Negative (Normal); Nitrate Urine Negative (Negative); Specific Gravity, Urine 1.021 (1.005-1.030)
[2025-09-15 12:48] LABS: Alanine Aminotransferase 16 U/L (0-33); Albumin Level 4.4 g/dL (3.5-5.2); Alkaline Phosphatase 118 U/L (35-105); Anion Gap 18.7 (5-19); Aspartate Amino Transferase 12 U/L (0-32); Blood Urea Nitrogen 7 mg/dL (6-20); Calcium 9.1 mg/dL (8.5-10.5); Carbon Dioxide 22 mmol/L (22-29); Chloride 101 mmol/L (98-107); Creatinine Clr Calc Pharmacy 184.7660; Globulin 2.9 g/dL (1.3-4.6); Glucose 108 mg/dL (65-115); Lipase 15 U/L (13-60); Osmolality Calculated 285 mOsm/kg (285-295); Potassium 3.7 mmol/L (3.5-5.1); Sodium 138 mmol/L (136-145); Total Protein 7.3 g/dL (6.6-8.7)
[2025-09-15 13:04] LABS: HCG Qualitative Urine. Negative (Negative)
[2025-09-15] MEDS: iohexol 350 mg/mL 500 mL Btl (per mL) IV (13:41)
[2025-09-15 13:47] VITALS: BP 129/56; PULSE 65; O2SAT 97
[2025-09-15 15:11] VITALS: BP 122/58; PULSE 63; O2SAT 100
== END 2025-09-15 15:12 | disposition home or self-care (01) ==
PROVIDERS: Emergency Provider Student in an Organized Health Care Education/Training Program
DX: R10.9 Unspecified abdominal pain (principal); I88.8 Other nonspecific lymphadenitis; Z79.84 Long term (current) use of oral hypoglycemic drugs; Z72.0 Tobacco use; E78.5 Hyperlipidemia, unspecified; E11.9 Type 2 diabetes mellitus without complications; I10 Essential (primary) hypertension
CPT/HCPCS: 36415; 36416; 74177; 80053; 81001; 81025; 82962; 83690; 85025; 87086; 96361; 96374; 96375; 99285; J1885; J2270; J2405; J7030

== ENCOUNTER → 2025-10-25 14:32 | Outpatient (BNVA) | payer SELFPAY | PROVIDERS: Visit Provider Nurse Practitioner | DX: R39.9 Unspecified symptoms and signs involving the genitourinary system (principal) | CPT/HCPCS: 81000 ==